=== PATIENT | female | born 1935 | race Caucasian/White ===

== ENCOUNTER 2019-08-10 17:06 | Inpatient (IN) ==
[2019-08-10] MEDS ORDERED: ATIVAN ONE (17:10)
--- NOTE | 2019-08-10 17:47 | Diag Imaging Result Doc PS360 ---
EXAM: CT HEAD W/O CONTRAST INDICATION: headache TECHNIQUE: This exam was performed using automated exposure control, adjustment of mA or kV according to patient size, and/or use of iterative reconstruction technique. COMPARISON: 12/13/2013 FINDINGS: There is a stable frontal craniotomy defect and stable underlying bifrontal encephalomalacia. There is no definite acute infarct given the limited sensitivity of CT versus MRI. There is no discrete intracranial mass, mass effect, or intracranial hemorrhage. Aside from the craniotomy defect. Surrounding soft tissues and bony structures are grossly unremarkable. IMPRESSION: Stable chronic changes as described. No definite acute intracranial pathology by CT. Electronically signed by Rush Alonso 08/10/2019 5:44 PM
--- NOTE | 2019-08-10 18:01 | Diag Imaging Result Doc PS360 ---
EXAM: CHEST-PORTABLE INDICATION: seizure TECHNIQUE: One view COMPARISON: 12/13/2013 FINDINGS: The lungs are grossly clear. There is no discrete pleural fluid collection or pneumothorax. The cardiomediastinal silhouette and central vasculature are grossly unremarkable. IMPRESSION: No evidence of acute pathology by plain radiograph. Electronically signed by Rush Alonso 08/10/2019 5:59 PM
[2019-08-10 18:06] LABS: BASO# 0.06 X1000 (0.0-0.2); BASO% 0.3 % (0.0-0.8); EOS% 0.5 % (0.0-10.0); HEMATOCRIT 34.8 % (37.0-47.0); HEMOGLOBIN 9.6 g/dL (12.0-16.0); IMM GRAN% 0.5 % (0.0-0.5); LYMPH# 3.11 X1000 (1.2-3.4); LYMPH% 15.9 % (20.5-51.1); MCH 22.4 PG (27-31); MCHC 27.6 g/dL (33-37); MCV 81.1 FL (81-99); MONO# 1.65 X1000 (0.11-0.59); MONO% 8.5 % (1.7-9.3); NEUT# 14.49 X1000 (1.4-6.5); NEUT% 74.3 % (42.2-75.2); PLT 297 X1000 (130-400); RBC 4.29 XMIL (4.2-5.4); RDW 18.7 % (11.5-14.5); WBC 19.51 X1000 (4.8-10.8)
[2019-08-10 18:26] LABS: CK-MB 2.67 ng/mL (0.0-5.0)
[2019-08-10 18:34] LABS: AGAP 27; ALBUMIN 4.1 g/dL (3.5-5.0); ALKALINE PHOSPHATASE 107 U/L (32-104); BUN 19 mg/dL (8-22); CALCIUM 8.9 mg/dL (8.8-10.2); CHLORIDE 104 mmol/L (98-107); COSMO 293; CREATININE 1.1 mg/dL (0.5-0.9); ESTIMATED GFR 48; GLUCOSE 235 mg/dL (70-104); GOT 21 U/L (10-30); GPT 9 U/L (10-36); SODIUM 142 mmol/L (136-145); TCO2 11 mmol/L (25-35); TOTAL BILIRUBIN < 0.15 mg/dL (0.20-1.00); TOTAL PROTEIN 6.4 g/dL (6.3-8.3)
--- NOTE | 2019-08-10 18:36 | PROVIDER DOCUMENTATION ---
This chart was entered by Belén Ta Scribe, acting as scribe for Federico Scott MD. HPI-Neurological Disorder - General Stated Complaint: seizure Time Seen by Provider: 08/10/19 17:06 Source: patient, family (daughter), EMS (first response) Unable to obtain history due to:: altered Allergies/Adverse Reactions: Patient Allergies Allergy/AdvReac Type Severity Reaction Status Date / Time Penicillins Allergy Severe ANAPHYLAXIS Verified 09/12/13 22:24 Home Medications: Home Medication List Medication Instructions Recorded Confirmed Last Taken Type ATORVAstatin [Lipitor] 10 mg PO DAILY 08/10/19 08/10/19 Unknown History Bacitracin 28.4 gm TOPICAL TID 08/10/19 08/10/19 Unknown History Benzhydrocodone/Acetaminophen 1 ea PO DAILY 08/10/19 08/10/19 Unknown History [Apadaz 4.08-325 mg Tablet] C,E,Zinc,Copper 11/Vezat5o/Lut 1 ea PO DAILY 08/10/19 08/10/19 Unknown History [Ocuvite Adult 50 Plus Softgel] Diphenhydramine [Benadryl] 25 mg PO DAILY 08/10/19 08/10/19 Unknown History Docusate Sodium 100 mg PO DAILY 08/10/19 08/10/19 Unknown History Hydrocolloid Dressing [Duoderm] 1 ea TOPICAL DIRECTED 08/10/19 08/10/19 Unknown History Insulin Detemir [Levemir] 6 units .SEE ORDER DAILY 08/10/19 08/10/19 Unknown History Levothyroxine [Synthroid] 50 microgm PO DAILY 08/10/19 08/10/19 Unknown History Lubiprostone [Amitiza] 24 microgm PO BID 08/10/19 08/10/19 Unknown History Melatonin 3 mg PO DAILY 08/10/19 08/10/19 Unknown History Memantine [Namenda] 5 mg PO DAILY 08/10/19 08/10/19 Unknown History Metformin [Glucophage] 500 mg PO BID CC 08/10/19 08/10/19 Unknown History Mirtazapine 7.5 mg PO DAILY 08/10/19 08/10/19 Unknown History Multivit with Iron,Minerals 1 ea PO DAILY 08/10/19 08/10/19 Unknown History [Complete Senior] Naproxen Sodium 550 mg PO DAILY 08/10/19 08/10/19 Unknown History Nystatin 15 gm TOPICAL TID 08/10/19 08/10/19 Unknown History Omeprazole [Prilosec] 20 mg PO DAILY 08/10/19 08/10/19 Unknown History Polyethylene Glycol 3350 [Miralax] 17 gm PO PRN PRN 08/10/19 08/10/19 Unknown History Temazepam 30 mg PO DAILY 08/10/19 08/10/19 Unknown History Zinc Oxide [Boudreauxs] 10 gm TOPICAL TID 08/10/19 08/10/19 Unknown History - History of Present Illness-Neuro Nature of Presenting Problem: 83 yowf presents to the ed via ems (first response) for seizure at home. pt was found on the floor and we have conflicting stories from daughter to time and amount of seizures. pt has no hx of afib or seizures known at this time and presents with both to ed. pt has a seizure with dr scott at bedside and after controlled sent to CT per ems pt had BGL 219 and defecated herself in transport to ed. pt smells of vomit but no vomit is seen on pt. Severity: reports: severe Onset/Duration: reports: unsure (sometime in last 2 hrs per daughter) Timing: reports: still present Context: reports: found unresponsive by family (daughter), seizure activity Character of Altered Mental Status: reports: seizure activity Cognitive Baseline: alert, oriented x3 Associated Symptoms: reports: seizures, other (incontinence of feces/unrespons avelina) Similar Symptoms Previously?: No - Seizure First time to have a seizure?: Yes (unsure if witnesssed the first but dr scott witnessed one at bedside) Witnessed seizure?: Yes (dr scott at bedside) Duration of episode? (mins): 2 Episode Frequency: no prior episodes Status Epilepticus: No Preceding symptoms/context:: none Character of Seizure: reports: lost consciousness, generalized shaking all over, incontinent of stool Post-ictal Symptoms: reports: other (unresponsive) Review of Systems - Adult - REVIEW OF SYSTEMS - ADULT ROS:: ems Constitutional: denies: chills, fever Eyes: reports: no symptoms reported Ears, Nose, Mouth & Throat: reports: no symptoms reported Cardiovascular: reports: no symptoms reported Respiratory: reports: no symptoms reported Gastrointestinal: reports: see HPI, vomiting Genitourinary: reports: see HPI, incontinence (feces) Musculoskeletal: reports: no symptoms reported Integumentary: reports: no symptoms reported Neurological: reports: see HPI, seizure Psychiatric: reports: no symptoms reported Endocrine: reports: no symptoms reported Hematologic/Lymphatic: reports: no symptoms reported Allergic/Immunologic: reports: no symptoms reported All Other Systems: Reviewed and Negative Past History - Adult - PAST MEDICAL HISTORY-ADULT Review of Records: reports: Old Records Reviewed, Nursing Assessment Review, M edications Reviewed, Social history reviewed & non-contributory. Major Childhood Illnesses: reports: denies history Cardiovascular: reports: A-Fib (new onset today), HTN Respiratory: reports: denies history Gastrointestinal: reports: GERD Obstetrical/Gynecological: reports: denies history Genitourinary: reports: denies history Musculoskeletal: reports: arthritis, chronic pain Hand Dominance: Right Handed Neurological: reports: CVA, dementia, other (brain tumor). denies: Seizures/Epilepsy Endocrine/Immune: reports: Diabetes Diabetes Type: Type 2 Other Conditions: reports: denies history - PRIOR SURGERIES/PROCEDURES Surgical/Procedure History: reports: cholecystectomy, hysterectomy, tonsillectomy, hernia repair, other (brain sx) - IMMUNIZATION STATUS Childhood Immunizations: See Nurse Assessment Flu Vaccine: See Nurse Assessment - FAMILY HISTORY Family History: reviewed, not pertinent - SOCIAL HISTORY Smoking: non-smoker Substance Use: none/never Living Situation: alone Physical Exam- Neurological - Physical Exam-Neuro Initial Vital Signs Reviewed: Yes (in afib, unresponsive) General Appearance: moderate distress, obese, obtunded Eye Exam: bilateral eye: PERRL (3mm), other (gaze to the left) HENMT: other (breath smells of vomit). negative: moist mucous membranes (dry) Head Injury: no evidence of injury Neck: normal inspection Respiratory: lungs clear Cardiovascular: irregularly irregular (afib 156) Abdominal Exam: normal bowel sounds, soft Lymphatic: no adenopathy Extremity: swelling (BLE edema) feed manager Exam: PERRL. negative: facial droop, facial paresthesias, facial weakness Integumentary: pallor Psych/Mental Status: other (unresponsive) - Glascow Coma Scale Best Eye Response: (3) open to voice Best Verbal Response: (1) no verbal response Best Motor Response: (1) no motor response Total Glascow Score: 3 Progress - PLAN OF CARE/RESULTS Progress/Plan/Lab Results: Vital Signs - 8 hr 08/10/19 17:11 08/10/19 17:30 08/10/19 18:14 Temperature 98.2 F Pulse Rate 156 H 146 H Respiratory Rate 20 20 Blood Pressure 125/87 116/77 O2 Sat by Pulse Oximetry 98 100 100 Laboratory Results - last 24 hr 08/10/19 08/10/19 08/10/19 17:24 17:24 17:24 WBC 19.51 H RBC 4.29 Hgb 9.6 L Hct 34.8 L MCV 81.1 MCH 22.4 L MCHC 27.6 L RDW Std Deviation 18.7 H Plt Count 297 MPV 12.0 H Immature Gran % (Auto) 0.5 Neut % (Auto) 74.3 Lymph % (Auto) 15.9 L Harney % (Auto) 8.5 Eos % (Auto) 0.5 Baso % (Auto) 0.3 Immature Gran # (Auto) 0.10 H Neut # (Auto) 14.49 H Lymph # (Auto) 3.11 Harney # (Auto) 1.65 H Eos # (Auto) 0.10 Baso # (Auto) 0.06 Creatine Kinase 265 H Creatine Kinase Index 1.0 CK-MB (CK-2) 2.67 Plasma/Serum Ethyl Alc Orders Category Date Time Status CHEST-PORTABLE [RAD] Stat Exams 08/10/19 17:[address] HEAD W/O CONTRAST [CT] Stat Exams 08/10/19 17:21 Completed ALCOHOL BLOOD Stat Lab 08/10/19 17:24 Completed BLOOD CULTURE [BLDCUL] Stat Lab 08/10/19 17:23 Ordered CBC WITH ELECTRONIC DIFF [HEME] Stat Lab 08/10/19 17:24 Completed CK PROFILE [SP CHEM] Stat Lab 08/10/19 17:24 Completed COMPREHENSIVE METABOLIC PANEL [CHEM] Stat Lab 08/10/19 17:[address] W/POSS RFLX CULT [URINALYSIS] Stat Lab 08/10/19 18:15 Or[address] URINE DRUG SCREEN PL Stat Lab 08/10/19 18:15 Ordered Lorazepam [Ativan] Med 08/10/19 17:10 Discontinued 2 mg .ROUTE .STK-MED ONE O2 Per Protocol Stat Oth 08/10/19 17:19 Active EKG [EKG] Stat Ther 08/10/19 17:19 Ordered Result Diagrams: 08/10/19 17:24 - REASSESSMENT Reassessment #1 Time Reassessed: 17:16 (dr scott at bedside and pt having 2nd seizure) Status: worsening Reassessment #2 Time Reassessed: 17:44 (speaking with family) Status: unchanged (daughter at bedside and dr scott is speaking with her and the daughter sts does not want her mother intubated and that is her mothers wishes as well. pt has GCS of 3 and was explained to daughter the seriousness of the medical situation and daughter still declines. sts has AD at home and sts no intubation or life saving measures done) - EKG 1 Time of EKG reading by physician:: 17:19 EKG Read and Signed by:: Federico Scott EKG Interpretation (*Must complete 3 of following elements*): Abnormal Rate: 170 Rhythm: afib with rvr Rescue: normal QRS: other (low voltage qrs) KS Interval: normal ST Wave: normal Comments: septal infarct, age undetermined - XRAY 1 XRAY: Bilateral XRAY Study: Chest Impression: See EMR Report - CT/MRI 1 CT Study: Head Impression: See EMR Report (EXAM: CT HEAD W/O CONTRAST INDICATION: headache TECHNIQUE: This exam was performed using automated exposure control, adjustment of mA or kV according to patient size, and/or use of iterative reconstruction technique. COMPARISON: 12/13/2013 FINDINGS: There is a stable frontal craniotomy defect and stable underlying bifrontal encephalomalacia. There is no definite acute infarct given the limited sensitivity of CT versus MRI. There is no discrete intracranial mass, mass effect, or intracranial hemorrhage. Aside from the craniotomy defect. Surrounding soft tissues and bony structures are grossly unremarkable. IMPRESSION: Stable chronic changes as described. No definite acute intracranial pathology by CT. Electronically signed by Rush Alonso 08/10/2019 5:44 PM 08/10/[id number] Interpreting Physician: Rush Alonso MD Dictated Date/Time: 08/10/191742 cc: Federico Scott MD; Sriram Alvares MD) Departure - Departure Date of Disposition Decision: 08/10/19 Time of Disposition Decision: 18:30 DIAGNOSIS: Seizure after head injury, History of brain tumor, Afib Disposition: ADMITTED INPATIENT 09 Certified Medical Emergency: Emergent Condition: Critical Referrals and Follow-Ups: Sriram Alvares MD [Primary Care Provider] - - Critical Care Note This patient required my direct & personal management of CC.: Yes Total Time (mins): 32 Critical Care Statement: This patient required my direct personal management to treat or rule out processes, the absence of which, could potentiallly result in sudden, clinically significant life or limb threatening deterioration. Attestation - Physician/ SHADY Attestation Patient care was provided by Advanced Practice Provider:: No The physician spent face to face time with patient:: Yes Advanced Practice Provider documentation review:: Supervising physician onsite and consulted in the evaluation and care of this patient. The physician did have a face to face encounter with the patient. - NIH Stroke Scale Level of Consciousness: 3-Coma LOC Questions (ask month and age): 2-Both Incorrect This chart was documented by the indicated scribe, (Belén Ta Scribe) and accurately reflects the services I performed and decisions made by me, Federico Scott MD, as attested by the provider's signature.
[2019-08-10 18:37] LABS: BILIRUBIN URINE NEGATIVE (NEGATIVE); BLOOD URINE 1+ (NEGATIVE); CLARITY CLEAR (CLEAR); COLOR AMBER; GLUCOSE URINE NEGATIVE (NEGATIVE); KETONE URINE 1+(Small) mg/dL (NEGATIVE); LEUKOCYTES URINE NEGATIVE (NEGATIVE); NITRITE URINE POSITIVE (NEGATIVE); PROTEIN URINE 2+(100 mg/dL) mg/dL (NEGATIVE); SP GRAVITY URINE 1.025; UROBILINOGEN URINE 4 mg/dL
[2019-08-10] MEDS ORDERED: LANOXIN IV ONE (18:37)
[2019-08-10] MEDS ORDERED: KEPPRA 500 MG in NS 100 ML IV ONE (18:37)
[2019-08-10 18:38] LABS: URINE BACTERIA 1+ /HFP; URINE EPITHELIAL CELLS <10 /HPF (<10); URINE YEAST NONE SEEN /HPF
[2019-08-10] MEDS ORDERED: ROCEPHIN 1 GM in NS 50 ML IV ONE (18:38)
[2019-08-10 18:39] LABS: URINE CAST NONE SEEN /LPF; URINE CRYSTAL NONE SEEN /HPF; URINE SOURCE CATH
--- NOTE | 2019-08-10 18:44 | EKG Report ---
Test Performed on : 08/10/2019 5:19:54 PM Test Reason : HIGH HEART RATE Blood Pressure : / mmHG Vent. Rate : 170 BPM Atrial Rate : 174 BPM P-R Int : 000 ms QRS Dur : 074 ms QT Int : 278 ms P-R-T Axes : 000 046 -89 degrees QTc Int : 467 ms Atrial fibrillation. with rapid ventricular response. Low voltage QRS Septal infarct , age undetermined Abnormal ECG When compared with ECG of 13-DEC-2013 09:05, Atrial fibrillation. has replaced Sinus rhythm. Vent. rate has increased BY 75 BPM Septal infarct is now present ST now depressed in Inferior leads Nonspecific T wave abnormality no longer evident in Anterior leads Unconfirmed Result
[2019-08-10] MEDS ORDERED: ATIVAN IV ONE (18:46)
[2019-08-10 19:10] LABS: UR AMPHETAMINES QUAL NONE DETECTED (NONE DETECT); UR BARBITUATES QUAL NONE DETECTED (NONE DETECT); UR BENZODIAZEPIN QUAL PRESUMPTIVE POSITIVE (NONE DETECT); UR CANNABINOIDS QUAL NONE DETECTED (NONE DETECT); UR COCAINE QUAL NONE DETECTED (NONE DETECT); UR METHADONE QUAL NONE DETECTED (NONE DETECT); UR METHAMPHETAMINE QUAL NONE DETECTED (NONE DETECT); UR OPIATES QUAL NONE DETECTED (NONE DETECT); UR OXYCODONE QUAL NONE DETECTED (NONE DETECT); UR PCP QUAL NONE DETECTED (NONE DETECT); UR PROPOXYPHENE QUAL NONE DETECTED (NONE DETECT); UR TCA QUAL NONE DETECTED (NONE DETECT)
[2019-08-10 19:43] LABS: INR 1.03
[2019-08-10] MEDS ORDERED: NS 1,000 ML IV ONE (20:17)
[2019-08-10 21:49] LABS: CREATININE 1.1 mg/dL (0.5-0.9); POTASSIUM 3.8 mmol/L (3.5-5.1)
--- NOTE | 2019-08-10 22:16 | HISTORY AND PHYSICAL ---
CHIEF COMPLAINT: Seizure. HISTORY OF PRESENT ILLNESS: The patient is an elderly female who unfortunately has an extensive medical history. She has known dementia. She was noted via video cam monitoring to have had a seizure and had fallen out of bed. She was brought to the ER. The family denies any knowledge of fevers, chills, cough, congestion. Denies any knowledge of urinary issues. She was found on the floor. Unclear as to how long she had been there prior to them finding her. ALLERGIES: Penicillin. MEDICATIONS: Lipitor, Apadaz 4.8/325, Ocuvite, Benadryl, DuoDerm, Levemir 6 units, Amitiza, Synthroid 50, Glucophage, Namenda, Prilosec. REVIEW OF SYSTEMS: Unobtainable from Ms. Renner; however, the family denied any knowledge of fevers, chills. Denied any knowledge of recent illness. They do note that she is chronically demented. No previous history of seizures. No previous focal deficits otherwise. PAST MEDICAL HISTORY: She has no previous history of atrial fibrillation, although she is currently in atrial fibrillation. History of hypertension, reflux, arthritis, chronic pain. She has CVA, dementia. She has had a brain tumor status post resection, history of diabetes. PAST SURGICAL HISTORY: She has had a cholecystectomy, hysterectomy, tonsillectomy, hernia surgery, and surgery on her frontal lobe to remove the tumor. FAMILY HISTORY: Noncontributory. SOCIAL HISTORY: She does not smoke or drink. She is cared for by her family. PHYSICAL EXAMINATION: Temperature 98 degrees, pulse 156 and irregular, respiratory 20, BP 125/87. Saturations 97% on room air. GENERAL: Patient is awake, alert, currently in no respiratory distress. HEENT: Atraumatic. No visible signs of trauma, although she did fall out of her bed. NECK: Supple. No visible focal defects. No JVD noted. CARDIOVASCULAR: Irregular rate, irregular rhythm. CHEST: Positive rhonchi, otherwise clear. No wheezing. No crackles. ABDOMEN: Soft, obese, nondistended. EXTREMITIES: She has edema bilaterally. This is chronic. Unable to assess otherwise that she does not follow any commands. NEUROLOGIC: Unable to assess. LABORATORIES: CBC notes a 19 white count. Lactate is elevated. CT head, no acute changes. ASSESSMENT: 1. Seizure. 2. History of brain tumor. 3. Atrial fibrillation, new onset. 4. Hypertension. 5. Diabetes. 6. Dementia. 7. Do Not Resuscitate level 1. PLAN: We did discuss with patient's family her code status. They are all in agreement that she is to be a Do Not Resuscitate level 1. She apparently had fallen on Thursday, although the family did not note any head injury. She was in her usual baseline status after the episode. Again, today she had another episode where she had fallen out of bed and again no known injury. No current bruising. CT head did not demonstrate any bleed or any acute change. Unclear as to what caused her fall a few days ago. Regardless, she certainly has had a seizure today that was witnessed on a monitoring [place] at home. We are going to admit her to the hospital, place her on digoxin to see if we can slow her heart rate down. If not, we will use Cardizem as well. We will use Keppra for her seizures. Given her history of brain injury and her seizure today, certainly would go ahead and start Keppra. We are going to place her on Rocephin until we can prove that her urine and blood cultures are negative. Family is aware and agrees. cc: Brown Pro MD
[2019-08-11] MEDS ORDERED: PNEUMOVAX 23 IM ONE (00:45)
[2019-08-11] MEDS ORDERED: DESYREL PO PRN (07:02)
[2019-08-11] MEDS ORDERED: MIRALAX PO PRN (07:02)
--- NOTE | 2019-08-11 09:40 | Diag Imaging Result Doc PS360 ---
EXAM: MRI BRAIN W/O CONTRAST - 08/11/2019 HISTORY: ? CVA/new onset seizure TECHNIQUE: MRI brain without contrast COMPARISON: 08/10/2019 CT head without contrast FINDINGS: There are artifacts from motion which limit detail. There are postsurgical changes of bifrontal craniotomy with encephalomalacia/gliosis. There is a questionable 0.5 cm area of restricted diffusion at the inferior lateral left parietal lobe versus artifact from motion. There is no other discrete area of restricted diffusion which is distinguishable from artifact identified. There is no evidence of intracranial hemorrhage, mass effect, or midline shift. IMPRESSION: Artifacts from motion which limit detail. Postsurgical changes of bifrontal craniotomy. Questionable small (0.5 cm) acute infarct at inferior lateral left parietal lobe versus artifact from motion. Electronically signed by Benson Pena 08/11/2019 9:38 AM
[2019-08-11] MEDS: LEVEMIR INSULIN *HA SUBQ SCH (09:46)
[2019-08-11] MEDS: NAMENDA XR PO SCH (09:48)
[2019-08-11] MEDS: COLACE PO SCH (09:48)
[2019-08-11] MEDS: NAPROSYN PO SCH (09:48)
[2019-08-11] MEDS: GLUCOPHAGE PO SCH ×2 (09:48→17:20)
[2019-08-11] MEDS: BENADRYL PO SCH (09:48)
[2019-08-11] MEDS: KEPPRA PO SCH ×2 (09:48→20:54)
[2019-08-11] MEDS: CARDIZEM CD PO SCH (09:48)
[2019-08-11] MEDS: AMITIZA PO SCH ×2 (09:48→20:54)
[2019-08-11] MEDS: MELATONIN PO SCH (09:57)
[2019-08-11] MEDS ORDERED: FLU VACCINE IM ONE (10:00)
[2019-08-11] MEDS: REMERON PO SCH (20:54)
[2019-08-11] MEDS ORDERED: LIPITOR PO SCH (21:00)
[2019-08-11] MEDS ORDERED: RESTORIL PO SCH (21:00)
--- NOTE | 2019-08-11 22:11 | PROGRESS NOTE ---
DATE: 08/11/2019 SUBJECTIVE: Patient is much more clear this morning. She is much more awake. The family notes that she is fairly close back to her baseline. PHYSICAL EXAMINATION: Temperature 98 degrees, pulse 98 to 113, BP 103/75.General: Patient is awake, currently in no distress. HEENT: Normocephalic. Neck: Supple. Cardiovascular: Regular rate. Chest: Decreased, but equal. Abdomen: Soft, nondistended. Extremities: Moves all extremities. ASSESSMENT: 1. Seizure, with a prolonged postictal. 2. History of brain tumor. 3. Atrial fibrillation, currently mildly tachycardic. 4. Hypertension. 5. Diabetes. 6. Dementia. 7. Do Not Resuscitate 1. PLAN: We are going to continue patient in the hospital today. We are going to add medicine to attempt to slow her heart rate and will follow. Discussed with the family at great length Code status. They want to continue with Do Not Resuscitate. Further orders as needed. cc: Brown Pro MD
[2019-08-12] MEDS: PRILOSEC PO SCH (06:11)
[2019-08-12] MEDS: SYNTHROID PO SCH (06:11)
[2019-08-12] MEDS: NAMENDA XR PO SCH (08:35)
[2019-08-12] MEDS: CARDIZEM CD PO SCH (08:36)
[2019-08-12] MEDS: COLACE PO SCH (08:36)
[2019-08-12] MEDS: NAPROSYN PO SCH (08:36)
[2019-08-12] MEDS: MELATONIN PO SCH (08:36)
[2019-08-12] MEDS: GLUCOPHAGE PO SCH ×2 (08:36→17:16)
[2019-08-12] MEDS: KEPPRA PO SCH ×3 (08:36→20:52)
[2019-08-12] MEDS: AMITIZA PO SCH ×2 (08:36→17:16)
[2019-08-12] MEDS: LEVEMIR INSULIN *HA SUBQ SCH (08:40)
[2019-08-12] MEDS: BENADRYL PO SCH (08:57)
--- NOTE | 2019-08-12 17:15 | PROGRESS NOTE ---
DATE: 08/12/2019 SUBJECTIVE: Patient herself is much more awake, alert. She has no complaints. The family has multiple questions. OBJECTIVE: Vital Signs: Temperature 98, pulse 112, respiratory rate 18, BP 120/67. General: Patient is in no current respiratory distress. HEENT: Normocephalic. Neck: Supple. Cardiovascular: Regular rate. Chest: Clear. Abdomen: Soft. Extremities: Moves all extremities. ASSESSMENT: 1. Seizure. 2. History of brain tumor. 3. Atrial fibrillation, new onset, currently rate controlled. 4. Hypertension. 5. Diabetes. 6. Dementia. 7. Do Not Resuscitate (DNR) level 1. PLAN: We are going to continue patient in the hospital. Continue to follow. Hopefully, she can transition to rehab soon. cc: Brown Pro MD
[2019-08-12] MEDS: REMERON PO SCH (20:52)
[2019-08-13] MEDS: PRILOSEC PO SCH (06:27)
[2019-08-13] MEDS: SYNTHROID PO SCH (06:27)
[2019-08-13] MEDS: COLACE PO SCH (09:27)
[2019-08-13] MEDS: GLUCOPHAGE PO SCH ×2 (09:27→16:55)
[2019-08-13] MEDS: KEPPRA PO SCH ×2 (09:27→21:17)
[2019-08-13] MEDS: CARDIZEM CD PO SCH (09:27)
[2019-08-13] MEDS: AMITIZA PO SCH ×2 (09:27→16:55)
[2019-08-13] MEDS: LEVEMIR INSULIN *HA SUBQ SCH (09:28)
[2019-08-13] MEDS: NAPROSYN PO SCH (09:28)
--- NOTE | 2019-08-13 19:53 | PROGRESS NOTE ---
DATE: 08/13/2019 SUBJECTIVE: Patient has no complaints. States that she is feeling okay. PHYSICAL EXAMINATION: Vital signs: Reviewed. Temp 98 degrees, pulse 78, respiratory rate 18, BP 132/49. General: Patient is awake. He is in no respiratory distress. HEENT: Normocephalic. Neck: Supple. CV: Regular rate. Chest: Clear, nonlabored. Abdomen: Soft, obese, nondistended. Extremities: Moves all extremities. She does have edema bilaterally. Neurologic: No changes. She is awake, alert, oriented. ASSESSMENT: 1. Seizure, new onset, continue on Keppra. 2. Adult failure to thrive with generalized weakness. 3. History of brain tumor. 4. Atrial fibrillation, new onset, stable. 5. Hypertension. 6. Diabetes. 7. Dementia. 8. Do Not Resuscitate. 9. Insomnia. Her sleeping actually is better after we stopped several of her medications. She is staying more awake and alert during the day and is sleeping better at night. cc: Brown Pro MD
[2019-08-13] MEDS: NAMENDA XR PO SCH (21:17)
[2019-08-13] MEDS: REMERON PO SCH (21:17)
[2019-08-14] MEDS: SYNTHROID PO SCH (06:22)
[2019-08-14] MEDS: PRILOSEC PO SCH (06:22)
[2019-08-14] MEDS: CARDIZEM CD PO SCH (08:44)
[2019-08-14] MEDS: AMITIZA PO SCH ×2 (08:44→16:52)
[2019-08-14] MEDS: COLACE PO SCH (08:44)
[2019-08-14] MEDS: GLUCOPHAGE PO SCH ×2 (08:44→16:52)
[2019-08-14] MEDS: KEPPRA PO SCH ×2 (08:45→20:42)
[2019-08-14] MEDS: NAPROSYN PO SCH (08:45)
[2019-08-14] MEDS: NAMENDA XR PO SCH (08:45)
[2019-08-14] MEDS: LEVEMIR INSULIN *HA SUBQ SCH (08:52)
[2019-08-14 10:36] LABS: AGAP 12; ALBUMIN 3.2 g/dL (3.5-5.0); ALKALINE PHOSPHATASE 89 U/L (32-104); BUN 9 mg/dL (8-22); CALCIUM 8.2 mg/dL (8.8-10.2); CHLORIDE 105 mmol/L (98-107); COSMO 283; CREATININE 0.7 mg/dL (0.5-0.9); ESTIMATED GFR > 60; GLUCOSE 116 mg/dL (70-104); GOT 9 U/L (10-30); GPT 9 U/L (10-36); HEMATOCRIT 31.4 % (37.0-47.0); HEMOGLOBIN 8.8 g/dL (12.0-16.0); MCH 22.4 PG (27-31); MCV 79.9 FL (81-99); MPV 11.8 FL (7.4-10.4); POTASSIUM 3.6 mmol/L (3.5-5.1); RBC 3.93 XMIL (4.2-5.4); RDW 19.1 % (11.5-14.5); SODIUM 142 mmol/L (136-145); TCO2 26 mmol/L (25-35); TOTAL PROTEIN 5.7 g/dL (6.3-8.3); WBC 7.3 X1000 (4.8-10.8)
--- NOTE | 2019-08-14 14:29 | PROGRESS NOTE ---
DATE: 08/14/2019 SUBJECTIVE: Patient with no new complaints. She is currently eating breakfast. OBJECTIVE: Vital Signs: Reviewed. Temperature 97.3 degrees, pulse 81, respiratory rate 18, BP 114/53. General: The patient is awake, alert, very pleasant. She is in no respiratory distress. HEENT: Normocephalic. Neck: Supple. CV: Regular rate. Chest: Clear. Abdomen: Soft. Extremities: Moves all extremities. Neurologic: No changes. ASSESSMENT: 1. Seizure. 2. Brain tumor by history. 3. Atrial fibrillation, new onset. 4. Hypertension. 5. Diabetes. 6. Dementia. 7. DO NOT RESUSCITATE. PLAN: We are going to continue the patient in the hospital today, and will get Grip Assembler involved in the morning. Hopefully, she can transition to rehab. cc: Brown Pro MD
[2019-08-14] MEDS: REMERON PO SCH (20:42)
[2019-08-15] MEDS: PRILOSEC PO SCH (06:11)
[2019-08-15] MEDS: SYNTHROID PO SCH (06:12)
[2019-08-15] MEDS: KEPPRA PO SCH (09:33)
[2019-08-15] MEDS: NAMENDA XR PO SCH (09:33)
[2019-08-15] MEDS: CARDIZEM CD PO SCH (09:33)
[2019-08-15] MEDS: GLUCOPHAGE PO SCH ×2 (09:33→17:43)
[2019-08-15] MEDS: AMITIZA PO SCH ×2 (09:34→17:43)
[2019-08-15] MEDS: NAPROSYN PO SCH (09:34)
[2019-08-15] MEDS: LEVEMIR INSULIN *HA SUBQ SCH (09:34)
[2019-08-15] MEDS: COLACE PO SCH (09:34)
--- NOTE | 2019-08-15 11:48 | DISCHARGE SUMMARY ---
ADMISSION DATE: 08/10/2019 DISCHARGE DATE: 08/15/2019 ADMISSION DIAGNOSES: 1. Seizure. 2. History of brain tumor. 3. Atrial fibrillation, new onset. 4. Hypertension. 5. Diabetes. 6. Dementia. 7. Do Not Resuscitate level 1. DISCHARGE DIAGNOSES: 1. Seizure. 2. Brain tumor by history. 3. Atrial fibrillation, new onset. 4. Hypertension. 5. Diabetes. 6. Dementia. 7. Do Not Resuscitate. CONSULTATIONS: Wound care, hospice care, case management, and social service. SURGERIES AND PROCEDURES: None. HOSPITAL COURSE: Ms. Lupillo Renner is an 84-year-old, female with an extensive medical history, one being brain tumor, and known dementia. Apparently, she had video camera monitoring, was found to fall out of the bed and had a seizure. She was brought to the emergency department. The family denied any knowledge of fever, chills, cough, congestion. Denied any knowledge of urinary issues. Was found on the floor and really was unclear to how long she had been there prior to the family finding her. She is a Do Not Resuscitate level 1, which was extensively discussed with the family on admission. She was back to her baseline after the episode of seizure. Apparently, she had a fall on the Thursday prior to admission as well. CT of the head was negative. Placed on digoxin for new onset atrial fibrillation, Keppra for the seizures, and then Rocephin was started until they could prove urine and blood cultures were negative. One blood culture came back coagulase-negative staphylococcus, most consistent with contamination. Urine culture was negative. Chest x-ray did not show any pneumonia. She ended up getting a brain MRI. It showed postsurgical changes of a bifrontal craniotomy due to a brain tumor in the past. There was a questionable area of small acute infarct at the inferolateral left parietal lobe versus that of artifact from motion. There were no changes in strength on one side or the other so this is most likely artifact. She remained here until she found a rehabilitation location. Heart rate was more controlled, anywhere from 70s to 80s. Blood pressure remains stable, 100s to 130s. She was deemed appropriate for discharge. There were no more active seizures. Antibiotics were stopped as there was no obvious source of infection. DISCHARGE VITAL SIGNS: Temperature 98.2 degrees, heart rate 99, respiratory rate 18, blood pressure 133/84, O2 saturation 95% on room air. DISCHARGE LAB DATA: White blood cells 7000, hemoglobin 8, hematocrit 31, platelet count 230,000. Sodium 142, potassium 3.6, BUN 9, creatinine 0.7, glucose 116, calcium 8.2. Bilirubin 0.20, AST 9, ALT 9, albumin 3.2. PERTINENT IMAGING: Head CT: Stable chronic changes. No acute findings. Brain MRI: Postsurgical changes of bifrontal craniotomy, questionable small 0.5 cm acute infarct at the inferolateral left parietal lobe versus artifact from motion. Chest x-ray: Negative for any acute findings. EKG showed atrial fibrillation with RVR, rate 170. DISCHARGE MEDICATIONS: 1. Lipitor 10 mg p.o. nightly. 2. Mirtazapine 7.5 mg p.o. nightly. 3. Amitiza 24 mcg p.o. daily. 4. Benzhydrocodone/acetaminophen 1 tablet p.o. daily. 5. Bacitracin to the groin. 6. Benadryl 25 mg p.o. daily. 7. Zinc oxide 10 g topical to groin. 8. Multivitamin once daily. 9. Trazodone 50 mg p.o. nightly p.r.n. 10. Docusate sodium 100 mg p.o. daily. 11. DuoDERM to buttocks every 72 hours. 12. Metformin 500 mg p.o. twice daily. 13. Levemir 6 units subcutaneous daily. 14. Synthroid 75 mcg p.o. daily. 15. Melatonin 3 mg p.o. daily. 16. Memantine HCL extended release 28 mg p.o. daily. 17. MiraLAX 17 g p.o. p.r.n. 18. Naproxen 550 mg p.o. daily. 19. Nystatin to the groin topically. 20. Vitamin C, E, zinc, copper, omega-3 once daily. 21. Prilosec 20 mg p.o. daily. 22. Cardizem CD 120 mg p.o. daily. 23. Keppra 250 mg p.o. twice daily. PHYSICIAN FOLLOWUP: Dr. Sriram Alvares. DISCHARGE DIET: Regular. DISCHARGE ACTIVITY: As tolerated but fall precautions. DISCHARGE INSTRUCTIONS: Skin care, take medications as prescribed, follow up with physicians as ordered. If there are any new symptoms of seizure or fast heart rate, please seek medical attention. DISCHARGE DISPOSITION: [facility]. Dictated by RADHA Driver for Brown Pro MD cc: RADHA Driver MD
[2019-08-15 15:19] VITALS: BP 132/52
[2019-08-15] MEDS: MELATONIN PO SCH (15:39)
--- NOTE | 2019-08-16 20:33 | DISCHARGE SUMMARY ---
ADMISSION DATE: 08/10/2019 DISCHARGE DATE: 08/15/2019 Patient seen and examined by myself. Full note dictated and discussed with nurse practitioner. On discharge, patient is awake, alert. She is feeling much better. Her atrial fibrillation has been rate controlled with Cardizem. We are going to discharge her to rehab on her current medications. Full note dictated by nurse practitioner. cc: Brown Pro MD
== END 2019-08-15 17:58 | DRG 101 ==
LOC: SUPCPDRO → P.ED 17:06 → P.MEDSURG 21:47
PROVIDERS: ATTEND Family Medicine

== ENCOUNTER 2019-08-20 00:17 | Inpatient (IN) ==
[2019-08-20 01:21] LABS: ALB/GLOB RATIO 1.5; ALBUMIN 3.5 g/dL (3.5-5.0); CREATININE 0.9 mg/dL (0.5-0.9); POTASSIUM 4.2 mmol/L (3.5-5.1); TOTAL BILIRUBIN 0.19 mg/dL (0.20-1.00); TOTAL PROTEIN 5.9 g/dL (6.3-8.3)
[2019-08-20 01:23] LABS: BASO# 0.01 X1000 (0.0-0.2); BASO% 0.1 % (0.0-0.8); HEMATOCRIT 31.3 % (37.0-47.0); HEMOGLOBIN 9.3 g/dL (12.0-16.0); IMM GRAN# 0.03 X1000 (0.0-0.04); IMM GRAN% 0.2 % (0.0-0.5); LYMPH# 0.48 X1000 (1.2-3.4); LYMPH% 3.9 % (20.5-51.1); MCH 22.8 PG (27-31); MCHC 29.7 g/dL (33-37); MCV 76.7 FL (81-99); MONO# 1.04 X1000 (0.11-0.59); MONO% 8.5 % (1.7-9.3); MPV 11.9 FL (7.4-10.4); NEUT# 10.74 X1000 (1.4-6.5); NEUT% 87.3 % (42.2-75.2); PLT 224 X1000 (130-400); RBC 4.08 XMIL (4.2-5.4); RDW 18.7 % (11.5-14.5)
[2019-08-20 02:21] LABS: ALLEN TEST YES; BE -3.6 mmoll (-3.0-3.0); BLOOD TYPE ARTERIAL; O2(CT) 12.2 mL/dL (15.0-23.0); O2HB 92.3 % (95.0-99.0); PCO2(98.6) 42 mmHg (35-45); PO2(98.6) 84 mmHg (60-100); SAMPLE BLOOD; SAO2 96.8 % (95.0-100.0); THB 9.3 g/dL (11.5-17.4); pH(98.6) 7.33 (7.35-7.45)
[2019-08-20 02:22] LABS: MODALITY BI PAP
[2019-08-20 02:40] LABS: URINE SOURCE CATH
[2019-08-20 02:42] LABS: BILIRUBIN URINE NEGATIVE (NEGATIVE); BLOOD URINE NEGATIVE (NEGATIVE); COLOR YELLOW; GLUCOSE URINE NEGATIVE (NEGATIVE); KETONE URINE TRACE mg/dL (NEGATIVE); LEUKOCYTES URINE NEGATIVE (NEGATIVE); NITRITE URINE NEGATIVE (NEGATIVE); PH URINE 5.5; PROTEIN URINE 70 mg/dL (NEGATIVE); SP GRAVITY URINE 1.027; TURBIDITY URINE HAZY (CLEAR); UROBILINOGEN URINE 2 mg/dL (NORMAL)
[2019-08-20 02:43] LABS: UR EPITHELIAL CELLS >10 /HPF (<10); URINE BACTERIA NEGATIVE /HPF; URINE RBC <10 /HPF (<10); URINE WBC <10 /HPF (<10)
[2019-08-23 07:41] VITALS: BP 160/82
== END 2019-08-23 13:05 | disposition hospice, home (50) | DRG 310 ==
LOC: SUPCPDRO → ED 00:17 → 2N 04:55 → SUATTDRO 04:55
PROVIDERS: ATTEND Internal Medicine